=== PATIENT | male | born 1975 | race African-American/Black ===

== ENCOUNTER 2018-10-23 19:03 | Emergency (ER) | payer MEDICAID ==
[~2018-10-23] VITALS: Ht 180.3 cm; Wt 86.4 kg
[2018-10-23 21:42] LABS: BASOPHILS % 0.5 % (0.0-2.0); EOSINOPHILS % 1.6 % (0.0-5.0); HEMATOCRIT. 48.2 % (42.0-52.0); HEMOGLOBIN. 16.4 g/dL (14.0-18.0); LYMPHOCYTES % 31.7 % (20.0-50.0); MEAN CORPUSCULAR HEMOGLOBIN 29.5 pg (28.0-32.0); MEAN CORPUSCULAR VOLUME 86.8 fL (80.0-94.0); MONOCYTES % 13.3 % (2.0-8.0); NEUTROPHILS % 52.9 % (40.0-76.0); PLATELET 148 x1000/uL (130-400); RED BLOOD CELL COUNT 5.56 mill/uL (4.7-6.1); RED CELL DISTRIBUTION WIDTH 15.1 % (11.6-14.6)
[2018-10-23 21:47] LABS: CHLORIDE 111 mEq/L (98-107)
[2018-10-23 21:51] LABS: ETHANOL BLOOD < 10 mg/dL
[2018-10-23] MEDS ORDERED: TOPIRAMATE 100MG TABLET PO STA (21:58)
[2018-10-23] MEDS ORDERED: KETOROLAC 30MG/ML VIAL IV ONE (22:00)
[2018-10-23] MEDS ORDERED: METOCLOPRAMIDE HCL 10MG/2ML VIAL IV ONE (22:00)
[2018-10-23 23:12] LABS: CLARITY URINE CLEAR (CLEAR); COLOR URINE YELLOW (YELLOW); KETONES URINE NEGATIVE (NEGATIVE); LEUKOCYTE ESTERASE URINE NEGATIVE (NEGATIVE); NITRITE URINE NEGATIVE (NEGATIVE); OCCULT BLOOD URINE NEGATIVE (NEGATIVE); PROTEIN URINE NEGATIVE (NEGATIVE); SPECIFIC GRAVITY URINE 1.025 (1.005-1.030)
[2018-10-23 23:25] LABS: *AMPHETAMINES SCREEN URINE NEGATIVE (NEGATIVE); *BARBITURATES SCREEN URINE NEGATIVE (NEGATIVE); *BENZODIAZEPINES SCREEN URINE NEGATIVE (NEGATIVE); *COCAINE SCREEN URINE NEGATIVE (NEGATIVE); METHADONE URINE SCREEN NEGATIVE (NEGATIVE)
[2018-10-23 23:26] LABS: CANNABINOID URINE SCREEN NEGATIVE (NEGATIVE); OPIATES URINE SCREEN NEGATIVE (NEGATIVE); PHENCYCLIDINE URINE SCREEN NEGATIVE (NEGATIVE)
[2018-10-23 23:44] VITALS: BP 119/81
== END 2018-10-23 23:47 | disposition home or self-care (01) ==
LOC: ER 19:03
DX: G40.909 Epilepsy, unspecified, not intractable, without status epilepticus (principal); Z88.6 Allergy status to analgesic agent
CPT/HCPCS: 36415; 80053; 80305; 80320; 81003; 85025; 96374; 96375; 99283; J1885; J2765; J7040; Z7610; G0480

== ENCOUNTER 2019-02-20 11:52 | Emergency (ER) | payer MEDICAID ==
[~2019-02-20] VITALS: Ht 180.3 cm; Wt 105.0 kg
[2019-02-20] MEDS ORDERED: LEVETIRACETAM 500MG TABLET PO ONE (13:00)
[2019-02-20] MEDS ORDERED: KETOROLAC 60MG/2ML VIAL IM ONE (13:00)
[2019-02-20 13:25] VITALS: BP 124/87
== END 2019-02-20 13:25 | disposition home or self-care (01) ==
LOC: ER 11:52
DX: S09.8XXA Other specified injuries of head, initial encounter (principal); Z76.0 Encounter for issue of repeat prescription; R56.9 Unspecified convulsions; F17.210 Nicotine dependence, cigarettes, uncomplicated; Y08.89XA Assault by other specified means, initial encounter; Y93.9 Activity, unspecified; Y92.9 Unspecified place or not applicable; Z88.6 Allergy status to analgesic agent
CPT/HCPCS: 96372; 99283; J1885